=== PATIENT | female | born 1990 | race Two or more races ===

== ENCOUNTER 2019-12-13 18:03 | Emergency (ER) | payer SELFPAY ==
[~2019-12-13] VITALS: Ht 167.6 cm; Wt 86.2 kg
[2019-12-13 18:03] VITALS: BP 129/90
--- NOTE | 2019-12-13 18:23 | Emergency Room Report ---
History of Present Illness General Chief Complaint: Substance Abuse Source: Patient, EMS (Corby Dickey MD) Present Illness HPI Patient apparently was running around naked in traffic. She was not responding to paramedics. When I examined the patient the patient started having random speech. She admitted to multiple things that did not make any sense. She agreed to that she has been doing drugs and does not know what she was doing. (Corby Dickey MD) Allergies: Coded Allergies: UNABLE TO ASSESS (Unverified , 12/13/19) COVID-19 Screening Contact w/high risk pt: No Experienced COVID-19 symptoms?: No COVID-19 Testing performed PRODUCTION MINER: No (Cobry Dickey MD) Patient History Limited by: medical condition Past Medical History: see triage record Social History: Reports: smoking, alcohol use, drug use Social History Narrative Homeless Last Menstrual Period: unk Reviewed Nursing Documentation: PMH: Agreed; PSxH: Agreed (Corby Dickey MD) Nursing Documentation-PMH Past Medical History Deferred: Pt Cognitively Impaired (Corby Dickey MD) Review of Systems All Other Systems: limited (Corby Dickey MD) Physical Exam Vital Signs Date Time Temp Pulse Resp B/P (MAP) Pulse Ox O2 Delivery O2 Flow Rate FiO2 12/13/19 17:57 98.2 109 20 129/90 (103) 99 Room Air Sp02 EP Interpretation: reviewed, normal General Appearance: alert, other Head: normocephalic, atraumatic Eyes: bilateral eye PERRL, bilateral eye abnormal EOM - Rotatory nystagmus, bilateral eye Scleral Injection ENT: moist mucus membranes - No lingual macerations Neck: full range of motion, supple Respiratory: chest non-tender, lungs clear, normal breath sounds Cardiovascular #1: no edema, tachycardia Cardiovascular #2: 2+ radial (R) Gastrointestinal: normal inspection, non tender, no mass, non-distended, decreased bowel sounds Genitourinary: no CVA tenderness Musculoskeletal: back normal, normal range of motion, gait/station normal Neurologic: alert, motor strength/tone normal, appointment clerk III-XII nml as tested - With nystagmus, DTRs symmetric, oriented x3, sensory intact, speech normal - But content disorganized, nystagmus Psychiatric: mood/affect normal Skin: no rash, warm/dry (Corby Dickey MD) Medical Decision Making Diagnostic Impression: Primary Impression: Amphetamine abuse Additional Impression: UTI (urinary tract infection) Qualified Codes: N39.0 - Urinary tract infection, site not specified ER Course Patient with waxing waning level of consciousness with rotatory nystagmus and substance abuse. Differential includes electrolyte imbalance, PCP, other drug ingestions, acute psychosis, seizure amongst others. Patient will be evaluated with EKG chest x-ray and labs. Patient has a nonfocal neurologic exam aside from the nystagmus. Patient is placed on a secured entrance monitor. EKG NSR, normal. Patient pulled out IV. Intermittantly psychotic and incoherent. Soft restraints and sedation. Patient ambulatory to bathroom. Urinalysis with pyuria. Rocephin ordered. Tox screen positive for amphetamine. Patient able to give name. More coherent. Patient signed out to Dr. Puente for reevaluation and disposition. Laboratory Tests Test 12/13/19 18:19 White Blood Count 11.6 K/UL (4.8-10.8) H Red Blood Count 4.66 M/UL (4.20-5.40) Hemoglobin 14.1 G/DL (12.0-16.0) Hematocrit 42.3 % (37.0-47.0) Mean Corpuscular Volume 91 FL (80-99) Mean Corpuscular Hemoglobin 30.2 PG (27.0-31.0) Mean Corpuscular Hemoglobin Concent 33.2 G/DL (32.0-36.0) Red Cell Distribution Width 12.1 % (11.6-14.8) Platelet Count 216 K/UL (150-450) Mean Platelet Volume 11.1 FL (6.5-10.1) H Neutrophils (%) (Auto) 75.2 % (45.0-75.0) H Lymphocytes (%) (Auto) 14.9 % (20.0-45.0) L Monocytes (%) (Auto) 8.6 % (1.0-10.0) Eosinophils (%) (Auto) 0.4 % (0.0-3.0) Basophils (%) (Auto) 0.9 % (0.0-2.0) Urine Color Yellow Urine Appearance Clear Urine pH 7 (4.5-8.0) Urine Specific [place] 1.015 (1.005-1.035) Urine Protein 1+ (NEGATIVE) H Urine Glucose (UA) Negative (NEGATIVE) Urine Ketones Negative (NEGATIVE) Urine Blood 1+ (NEGATIVE) H Urine Nitrite Negative (NEGATIVE) Urine Bilirubin Negative (NEGATIVE) Urine Urobilinogen Normal MG/DL (0.0-1.0) Urine Leukocyte Esterase 3+ (NEGATIVE) H Urine RBC 5-10 /HPF (0 - 2) H Urine WBC 10-15 /HPF (0 - 2) H Urine Squamous Epithelial Cells Few /LPF (NONE/OCC) Urine Bacteria Moderate /HPF (NONE) H Urine HCG, Qualitative Negative (NEGATIVE) Sodium Level 136 MMOL/L (136-145) Potassium Level 3.4 MMOL/L (3.5-5.1) L Chloride Level 101 MMOL/L (98-107) Carbon Dioxide Level 21 MMOL/L (21-32) Anion Gap 14 mmol/L (5-15) Blood Urea Nitrogen 11 mg/dL (7-18) Creatinine 0.7 MG/DL (0.55-1.30) Estimated Glomerular Filtration Rate > 60 mL/min (>60) Glucose Level 104 MG/DL (74-106) Calcium Level 8.9 MG/DL (8.5-10.1) Total Bilirubin 0.9 MG/DL (0.2-1.0) Aspartate Amino Transferase (AST) 38 U/L (15-37) H Alanine Aminotransferase (ALT) 28 U/L (12-78) Alkaline Phosphatase 52 U/L (46-116) Total Creatine Kinase 946 U/L (26-308) H Total Protein 8.0 G/DL (6.4-8.2) Albumin 3.7 G/DL (3.4-5.0) Globulin 4.3 g/dL Albumin/Globulin Ratio 0.9 (1.0-2.7) L Salicylates Level 2.9 ug/mL (2.8-20) Urine Opiates Screen Negative (NEGATIVE) Acetaminophen Level < 2 MCG/ML (10-30) L Urine Barbiturates Screen Negative (NEGATIVE) Phencyclidine (PCP) Screen Negative (NEGATIVE) Urine Amphetamines Screen Positive (NEGATIVE) H Urine Benzodiazepines Screen Negative (NEGATIVE) Urine Cocaine Screen Negative (NEGATIVE) Urine Marijuana (THC) Screen Negative (NEGATIVE) Serum Alcohol < 3 mg/dL (Corby Dickey MD) ER Course Assumed care of the patient from previous provider approximately 2300 Briefly this is a 29-year-old female brought in by EMS for altered mental status. Labs consistent with acute amphetamine use and urinary tract infection. She was given ceftriaxone. Labs otherwise within normal limits. She has metabolized in the ED and now is able to provide her name as she was originally a [place]. States her niece Naomy and admits to using crystal meth earlier today. Denies SI/HI. She is awake, alert and mentating coherently. Sister was contacted and will come pick her up. Stable for outpatient follow-up. Instructed to return to the ED with new or worsening symptoms. (Mahendra Puente MD) EKG Diagnostic Results Rate: normal Rhythm: NSR ST Segments: no acute changes (Corby Dickey MD) Rhythm Strip Diag. Results EP Interpretation: yes Rhythm: NSR, no PVC's, no ectopy (Corby Dickey MD) Last Vital Signs Date Time Temp Pulse Resp B/P (MAP) Pulse Ox O2 Delivery O2 Flow Rate FiO2 12/14/19 00:50 98.0 82 18 124/82 98 Room Air Status: improved (Corby Dickey MD) Disposition: HOME, SELF-CARE Condition: Improved Scripts Cephalexin* (KEFLEX*) 500 Mg Capsule 500 MG ORAL EVERY 12 HOURS, #14 CAP 0 Refills Prov: Mahendra Puente MD 12/14/19 Corby Dickey MD Dec 13, 2019 18:23 Mahendra Puente MD Dec 14, 2019 00:44
[2019-12-13 18:45] LABS: APPEARANCE,URINE CLEAR; BILIRUBIN, URINE NEGATIVE (NEGATIVE); GLUCOSE, URINE (UA) NEGATIVE (NEGATIVE); KETONES,URINE NEGATIVE (NEGATIVE); LEUKOCYTE ESTERASE ,URINE 3+ (NEGATIVE); NITRITE,URINE NEGATIVE (NEGATIVE); PH,URINE 7 (4.5-8.0); PROTEIN,URINE 1+ (NEGATIVE); UROBILINOGEN,URINE NORMAL MG/DL (0.0-1.0)
[2019-12-13] MEDS ORDERED: Haloperidol 5mg/ml Inj IM ONE (18:45)
[2019-12-13] MEDS ORDERED: DiphenhydrAMINE 50mg/ml Inj IM ONE (18:45)
[2019-12-13] MEDS ORDERED: LORazepam Inj 2mg/ml 1ml IM ONE (18:45)
[2019-12-13 18:47] LABS: BASOPHILS % (AUTO) 0.9 % (0.0-2.0); EOSINOPHILS % (AUTO) 0.4 % (0.0-3.0); HEMATOCRIT 42.3 % (37.0-47.0); HEMOGLOBIN 14.1 G/DL (12.0-16.0); LYMPHOCYTES % (AUTO) 14.9 % (20.0-45.0); MEAN CORPUSCULAR VOLUME 91 FL (80-99); MONOCYTES % (AUTO) 8.6 % (1.0-10.0); NEUTROPHILS % (AUTO) 75.2 % (45.0-75.0); PLATELET COUNT 216 K/UL (150-450); RED BLOOD COUNT 4.66 M/UL (4.20-5.40); RED CELL DISTRIBUTION WIDTH 12.1 % (11.6-14.8); WHITE BLOOD COUNT 11.6 K/UL (4.8-10.8)
[2019-12-13 18:48] LABS: COLOR,URINE YELLOW
[2019-12-13 19:04] LABS: ANION GAP 14 mmol/L (5-15); BLOOD UREA NITROGEN 11 mg/dL (7-18); CALCIUM 8.9 MG/DL (8.5-10.1); CARBON DIOXIDE 21 MMOL/L (21-32); CHLORIDE 101 MMOL/L (98-107); CREATININE 0.7 MG/DL (0.55-1.30); POTASSIUM 3.4 MMOL/L (3.5-5.1); SODIUM 136 MMOL/L (136-145)
[2019-12-13 19:08] LABS: ALANINE AMINOTRANSFERASE 28 U/L (12-78); ALBUMIN 3.7 G/DL (3.4-5.0); ALBUMIN/GLOBULIN RATIO 0.9 (1.0-2.7); ALKALINE PHOSPHATASE 52 U/L (46-116); ASPARTATE AMINO TRANSFERASE 38 U/L (15-37); BILIRUBIN,TOTAL 0.9 MG/DL (0.2-1.0); CREATINE KINASE 946 U/L (26-308)
[2019-12-13] MEDS ORDERED: cefTRIAXone 1 GM in NS 55 ML IVPB ONE (19:30)
[2019-12-13 20:00] VITALS: BP 134/86
[2019-12-14] MEDS ORDERED: CEPHALEXIN500 MG ORAL (00:34)
[2019-12-14 00:50] VITALS: BP 124/82
== END 2019-12-14 00:50 | disposition home or self-care (01) ==
LOC: EDBD 18:03 → EMR 18:50
DX: F15.10 Other stimulant abuse, uncomplicated (principal); N39.0 Urinary tract infection, site not specified; F17.200 Nicotine dependence, unspecified, uncomplicated
CPT/HCPCS: 36415; 80053; 80307; 81003; 81025; 82550; 85025; 87086; 93005; 96361; 96365; 96372; 99284; G0480; J0696; J1200; J1630; J7030